=== PATIENT | male | born 1995 | race Caucasian/White ===

== ENCOUNTER 2020-08-17 09:20 | Emergency (ER) | payer MEDICAID, SELFPAY ==
[~2020-08-17] VITALS: Ht 167.6 cm; Wt 102.1 kg
[2020-08-17 09:28] VITALS: BP_SYST 142
--- NOTE | 2020-08-17 09:28 | NUR ---
Patient to ER bed 03 to gown for evaluation. Side rails up.
--- NOTE | 2020-08-17 09:30 | NUR ---
Patient arrived in the ED c/o LEFT EARACHE, FEVERS, BODYACHES, ITCHY THROAT, BACK PAIN, DIZZINESS for the last WEEK. Denied any chest pain or shortness of breath. Denied any chills, nausea or vomiting. Patient is alert and oriented x4, respirations even and unlabored, speaking in full sentences, and ambulating with a steady gait. VSS, pain level 4/10. Informed of the approximate wait time. Instructed to notify ED staff for any changes in condition or worsening of symptoms while waiting to be seen by an ED provider. Patient verbalized understanding.
--- NOTE | 2020-08-17 09:32 | NUR ---
ER Dr. Fulton at bedside examining patient.
[2020-08-17 10:01] VITALS: BP_SYST 142
--- NOTE | 2020-08-17 10:01 | NUR ---
Patient given written and verbal discharge instructions and verbalizes understanding. ER MD discussed with patient the results and treatment provided. Patient in stable condition. ID arm band removed. Rx of AMOXICILLIN AND MOTRIN given. Patient educated on pain management and to follow up with PMD. Pain Scale 0/10. Opportunity for questions provided and answered. Medication side effect fact sheet provided.
== END 2020-08-17 10:01 | disposition home or self-care (01) ==
LOC: SED 09:20
DX: U07.1 COVID-19 (principal); H66.92 Otitis media, unspecified, left ear
CPT/HCPCS: 99283; C9803; U0003

== ENCOUNTER 2020-11-23 23:01 | Emergency (ER) | payer MEDICAID, SELFPAY ==
[~2020-11-23] VITALS: Ht 167.6 cm; Wt 97.5 kg
[2020-11-23 23:12] VITALS: BP_SYST 153
[2020-11-23] MEDS ORDERED: AMOX500C2 PO (23:17)
[2020-11-23] MEDS ORDERED: IBUP-1971 PO (23:17)
[2020-11-23] MEDS ORDERED: HYDR-4272 PO (23:17)
[2020-11-23] MEDS ORDERED: KETOROLAC TROMETHAMINE 60 MG/2 ML VIAL IM ONE ×2 (23:23→23:30)
[2020-11-23 23:27] VITALS: BP_SYST 153
== END 2020-11-23 23:55 | disposition home or self-care (01) ==
LOC: SED 23:01
DX: K04.7 Periapical abscess without sinus (principal)
CPT/HCPCS: 96372; 99283; J1885

== ENCOUNTER 2021-11-11 08:28 | Emergency (ER) | payer MEDICAID, SELFPAY ==
[~2021-11-11] VITALS: Ht 175.3 cm; Wt 87.1 kg
[~2021-11-11 08:28] MED LIST: AMOX500C2 PO; HYDR-4272 PO; IBUP-1971 PO
[2021-11-11 09:14] VITALS: BP_SYST 129
[2021-11-11] MEDS ORDERED: TRAM50TA PO (09:25)
[2021-11-11] MEDS ORDERED: NAPR-688 PO (09:25)
[2021-11-11 12:45] VITALS: BP_SYST 116
== END 2021-11-11 12:45 | disposition home or self-care (01) ==
LOC: SED 08:28
DX: S29.011A Strain of muscle and tendon of front wall of thorax, initial encounter (principal); Z79.899 Other long term (current) drug therapy; Y04.0XXA Assault by unarmed brawl or fight, initial encounter; Y93.89 Activity, other specified; Y92.89 Other specified places as the place of occurrence of the external cause; Y99.8 Other external cause status
CPT/HCPCS: 99283

== ENCOUNTER 2022-02-11 14:21 | Emergency (ER) | payer MEDICAID ==
[~2022-02-11] VITALS: Ht 170.2 cm; Wt 95.3 kg
[~2022-02-11 14:21] MED LIST changes: +NAPR-688 PO; +TRAM50TA PO
[2022-02-11 14:32] VITALS: BP_SYST 142
--- NOTE | 2022-02-11 14:37 | NUR ---
Pt brought by self, A&Ox4, pt presents to ER with mouth sores lower lip and sore on L facial area, states he had cold symptoms in the last couple weeks, afebrile, will cont to monitor.
[2022-02-11] MEDS ORDERED: ACYC400T19 PO (14:54)
--- NOTE | 2022-02-11 14:55 | NUR ---
Dr Villalobos evaluating patient in the triage room
[2022-02-11 15:30] VITALS: BP_SYST 142
--- NOTE | 2022-02-11 15:32 | NUR ---
Patient given written and verbal discharge instructions and verbalizes understanding. ER MD discussed with patient the results and treatment provided. Patient in stable condition. ID arm band removed. Rx of Acyclovir given. Patient educated on pain management and to follow up with PMD. Pain Scale 0/10. Opportunity for questions provided and answered. Medication side effect fact sheet provided.
== END 2022-02-11 15:32 | disposition home or self-care (01) ==
LOC: SED 14:21
DX: K05.10 Chronic gingivitis, plaque induced (principal)
CPT/HCPCS: 99283